=== PATIENT | male | born 1955 | race Two or more races ===

== ENCOUNTER 2018-05-25 09:31 | Inpatient (IN) | END 2018-07-02 21:58 | DRG 374 ==

== ENCOUNTER 2018-07-31 21:37 | Inpatient (IN) | END 2018-08-03 18:00 | disposition home health service (06) | DRG 393 ==

== ENCOUNTER 2018-10-18 12:07 | Inpatient (IN) | payer MEDICARE, OTHER ==
[~2018-10-18] VITALS: Ht 182.9 cm; Wt 56.9 kg
[2018-10-18] MEDS ORDERED: morphine 4 MG/ML VIAL IV STA (12:12)
[2018-10-18] MEDS ORDERED: CEFEPIME 2GM/50 ML (PMX) 50 ML IVPB STA (12:12)
[2018-10-18] MEDS ORDERED: SODIUM CHLORIDE 0.9% 1L BAG IV* STA (12:12)
[2018-10-18] MEDS ORDERED: ONDANSETRON 4 MG INJ IV STA (12:12)
[2018-10-18 12:17] VITALS: Ht 182.9 cm; Wt 56.9 kg
[2018-10-18] MEDS ORDERED: ALBUTEROL 0.5% (NEB) 2.5 MG/0.5 ML AMP INH STA (12:28)
[2018-10-18] MEDS ORDERED: IPRATROPIUM (NEB) 0.5 MG/2.5 ML AMP INH STA (12:28)
[2018-10-18] MEDS ORDERED: VANCOMYCIN 1 GM (PMX) 250 ML IVPB ONE (12:30)
--- NOTE | 2018-10-18 13:06 | ERD ---
ER Documentation Chief Complaint Chief Complaint sob, generalized weakness. 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 He is undergoing radiation therapy. He has chronic dysphagia with a PEG tube. He also has underlying COPD hypertension cirrhosis and baseline tachycardia. The patient was brought into the emergency department today by EMS for generalized weakness. His son phoned 911 and informed EMS that the patient was recently discharged from [facility] on October 13, 2018. The patient denies any chest pain. He has no shortness of breath at rest or exertion. The patient denies headache or dizziness. The patient is also a DO NOT RESUSCITATE with comfort measures only ROS All systems reviewed and are negative except as per history of present illness. Medications Home Meds Reported Medications Acetaminophen* (Tylenol*) 500 Mg Tab, 500 MG PO NEEDED PRN for MILD PAIN LEVEL 1-3, TAB 10/18/18 Discontinued Reported Medications Amlodipine Besylate* (Norvasc*) 5 Mg Tablet, 5 MG PO NEEDED, TAB 07/31/18 Benazepril Hcl* (Benazepril Hcl*) 20 Mg Tablet, 20 MG PO NEEDED, #30 TAB 07/31/18 Acetaminophen* (Acetaminophen*) 325 Mg Tablet, 325 MG PO Q4H PRN for PAIN AND OR ELEVATED TEMP, #30 TAB 05/24/18 Amitriptyline Hcl* (Amitriptyline Hcl*) 25 Mg Tablet, 25 MG PO QHS, #30 TAB 07/31/18 Omeprazole* (Omeprazole*) 40 Mg Capsule.dr, 40 MG PO DAILY, #30 CAP 07/31/18 Polyethylene Glycol 3350 (POLYETHYLENE GLYCOL 3350) 1 Gm Granules, 1 GM MC 07/31/18 Meloxicam* (Mobic*) 15 Mg Tablet, 15 MG PO DAILY, #30 TAB 07/31/18 Lorazepam* (Lorazepam*) 0.5 Mg Tablet, 0.5 MG PO HS PRN for AGITATION/ANXIETY, TAB 05/24/18 Pantoprazole* (Pantoprazole*) 40 Mg Tablet.dr, 40 MG PO DAILY, TAB 05/24/18 Discontinued Scripts [Swallow Study] No Conflict Check VIDEO SWALLOW STUDY INDICATION: Severe Dysphagia DIAGNOSIS: Squamous esophageal cancer of the esophagus Prov:YOUSIF GARCIA 08/03/18 Allergies Allergies: Coded Allergies: No Known Allergy (Unverified , 10/18/18) PMhx/Soc History of Surgery: Yes (gtube) Anesthesia Reaction: No Hx Neurological Disorder: No Hx Respiratory Disorders: Yes Hx Cardiac Disorders: Yes Hx Psychiatric Problems: No Hx Miscellaneous Medical Probl: Yes (esophageal ca) Hx Alcohol Use: Yes Hx Substance Use: No Hx Tobacco Use: Yes Smoking Status: Never smoker Physical Exam Vitals Vital Signs Date Temp Pulse Resp B/P (MAP) Pulse Ox O2 O2 Flow FiO2 Time Delivery Rate 10/18/18 28 158/67 High Flow 14:50 (97) 10/18/18 94 100 13:18 10/18/18 122 28 94 100 13:18 10/18/18 120 30 165/93 High Flow 13:00 (117) 10/18/18 Nasal 3.0 12:20 Cannula 10/18/18 97.0 122 32 177/100 82 Nasal 4.0 12:20 (125) Cannula 10/18/18 Nasal 3 12:20 Cannula 10/18/18 97.0 122 32 177/100 80 12:17 (125) Physical Exam Constitutional: Debilitated cachectic male HEENT:Normocephalic. Atraumatic.Pupils were equal round reactive to light. Moist mucous membranes.No tonsillar exudates. Neck: No nuchal rigidity. No lymphadenopathy. No posterior cervical spine tenderness or step-offs. Respiratory: Auditory wheezing and wheezing heard on end auscultation bilaterally. No stridor. No rhonchi. Cardiovascular: Tachycardic with regular rhythm.No murmurs. No rubs were appreciated.S1, S2 normal. Distal pulses are palpable 2+ bilaterally. GI: Abdomen was soft. Nontender. Non Distended. No pulsatile abdominal masses or bruits. No rebound. No guarding. Bowel sounds were present and normal. PEG tube in place. Muscle skeletal: Muscle atrophy of the upper and lower extremities Skin: No petechia, no purpura. No lesions on the palms or the soles of the feet. No maculopapular rash. NEURO: She was alert and awake. Patient would follow simple verbal command. Patient was moaning incomprehensible sounds. Result Diagram: 10/18/18 1230 10/18/18 1230 Results 24 hrs Laboratory Tests Test 10/18/18 12:30 10/18/18 12:38 White Blood Count 28.0 10^3/ul Red Blood Count 3.04 10^6/ul Hemoglobin 9.3 g/dl Hematocrit 29.9 % Mean Corpuscular Volume 98.4 fl Mean Corpuscular Hemoglobin 30.6 pg Mean Corpuscular Hemoglobin Concent 31.1 g/dl Red Cell Distribution Width 15.4 % Platelet Count 190 10^3/UL Mean Platelet Volume 12.7 fl Immature Granulocytes % 1.100 % Neutrophils % % Segmented Neutrophils % (Manual) 92 % Band Neutrophils % (Manual) 3 % Lymphocytes % % Lymphocytes % (Manual) 3 % Monocytes % % Monocytes % (Manual) 2 % Eosinophils % % Basophils % % Nucleated Red Blood Cells % 0.0 /100WBC Immature Granulocytes # 0.300 10^3/ul Neutrophils # 10^3/ul Neutrophils # (Manual) 26.0 10^3/ul Band Neutrophils # 0.8 10^3/ul Lymphocytes (Manual) 0.8 10^3/ul Lymphocytes # 10^3/ul Monocytes # 10^3/ul Monocytes # (Manual) 0.5 10^3/ul Eosinophils # 10^3/ul Basophils # 10^3/ul Nucleated Red Blood Cells # 10^3/ul Platelet Estimate NORMAL Giant Platelets 1 % Polychromasia 1+ Poikilocytosis 1+ Anisocytosis 1+ Prothrombin Time 18.2 Sec Prothrombin Time Ratio 1.4 INR International Normalized Ratio 1.48 Activated Partial Thromboplast Time 39.9 Sec Urine Color YELLOW Urine Clarity CLOUDY Urine pH 5.0 Urine Specific [place] 1.015 Urine Ketones NEGATIVE mg/dL Urine Nitrite NEGATIVE mg/dL Urine Bilirubin NEGATIVE mg/dL Urine Urobilinogen NEGATIVE mg/dL Urine Leukocyte Esterase NEGATIVE Roxana/ul Urine Microscopic RBC 58 /HPF Urine Microscopic WBC 11 /HPF Urine Bacteria FEW /HPF Urine Mucus FEW /HPF Urine Hemoglobin 2+ mg/dL Urine Glucose NEGATIVE mg/dL Urine Total Protein NEGATIVE mg/dl Sodium Level 153 mmol/L Potassium Level 3.1 mmol/L Chloride Level 119 mmol/L Carbon Dioxide Level 29 mmol/L Anion Gap 5 Blood Urea Nitrogen 31 mg/dl Creatinine 0.66 mg/dl Est Glomerular Filtrat Rate mL/min > 60 mL/min Glucose Level 109 mg/dl Lactic Acid Level 2.2 mmol/L Calcium Level 12.4 mg/dl Total Bilirubin 0.3 mg/dl Direct Bilirubin 0.00 mg/dl Indirect Bilirubin 0.3 mg/dl Aspartate Amino Transf (AST/SGOT) 45 IU/L Alanine Aminotransferase (ALT/SGPT) 23 IU/L Alkaline Phosphatase 141 IU/L Troponin I 0.023 ng/ml Total Protein 7.0 g/dl Albumin 2.6 g/dl Globulin 4.40 g/dl Albumin/Globulin Ratio 0.59 Amylase Level 50 U/L Lipase 42 U/L POC Venous Lactate 2.3 mmol/L Current Medications Medications Dose Sig/Deandra Start Time Status Last (Trade) Ordered Route PRN Stop Time Admin Dose Reason Admin Sodium 2,400 ml BOLUS OVER 2 10/18/18 DC 10/18/18 Chloride HOURS STAT 12: 13:08 (NS) IV* 10/18/18 12:15 Morphine 2 mg ONCE STAT 10/18/18 DC 10/18/18 Sulfate IV 12:12 13:08 (morphine) 10/18/18 12:15 Ondansetron 4 mg ONCE STAT 10/18/18 DC 10/18/18 HCl (Zofran IV 12:12 13:08 Inj) 10/18/18 12:15 Cefepime HCl 50 ml @ ONCE STAT 10/18/18 DC 10/18/18 100 mls/hr IVPB 12:12 13:28 10/18/18 12:41 Vancomycin 250 ml @ ONCE ONCE 10/18/18 DC 10/18/18 HCl 125 mls/hr IVPB 12:30 13:07 10/18/18 14:29 Albuterol 10 mg ONCE STAT 10/18/18 DC 10/18/18 (Proventil INH 12:28 13:20 0.5% (Neb)) 10/18/18 12:30 Ipratropium 1 mg ONCE STAT 10/18/18 DC 10/18/18 Colver INH 12:28 13:21 (Atrovent 10/18/18 0.02% 12:30 (Neb)) Procedures/MDM This is a 63-year-old male that presented to the emergency department with respiratory distress cachexia and physical exam findings with failure to thrive. To treat the patient's respiratory distress he was immediately placed on high flow supplemental oxygen. He was hypoxic on room air at roughly 88%. He improved his pulse oximetry to 96% on the high flow and was also given nebulizer treatments albuterol Atrovent with improvement of the wheezing. 12 Lead EKG tracing ordered and reviewed by myself showed: Sinus tachycardia 118 bpm and no arrhythmia. Immature supraventricular complexes. TN interval normal. QRS duration normal. No ST segment elevation No ST segment depression. No changes consistent with acute ischemia. The patient arrived he did meet Sirs criteria. Patient's infectious symptoms have not stabilized and the patient is at risk of rapid decompensation. The patient will be admitted for careful hydration, antibiotic therapy, and infectious source control. Severe Sepsis Assessment: Infectious Source: Pyleonephritis End organ damage indicated by: Lactate > 2.0 mmol/L Severe Sepsis Managment: Blood Cultures X 2 before broad spectrum antibiotics initiated within 3 hours of recognition. 30 ml/kg NS bolus Completed Initial Lactate: Normal Repeat Lactate not indicated as initial < 2.0 I considered further perfusion assessment with CVP measurement, SCVO2, bedside ultrasound volume assessment, passive leg raise, trial of further fluid bolus. And preceded with IV fluids The patient has significant elevation of his sodium at 156. The patient had a urinary tract infection. 1 view chest radiograph were reviewed by myself and again the followin. Hazy air space opacities in the lower lung navarrete bilaterally. This may reflect an acute inflammatory process. 2. Small the medium right pleural effusion with trace left-sided pleural effusion. Cardiomegaly and aortic atherosclerosis. Family was at bedside and I did indicate grave prognosis as the patient and he was given analgesic medication. The patient will be admitted under the care of Dr. Gusman as requested by Dr. Perez will be consulted on the patient's case. Given that the patient is comfort care measures only the patient will be going to the medical surgical floor. Critical Care: Time: 80 minutes Treatments/Evaluations: Close monitoring and treatment of unstable vital signs, cardiorespiratory, and neurologic status, while maintaining tight balance of fluid, respiratory, and cardiac interventions. Time does not include performing any of the above billable procedures. The patient had been admitted up to the medical surgical floor. I received a call from the charge nurse Sena as she stated the family was requesting the patient to be transferred to the intensive care unit for further monitoring. The order had been put in by Dr. Arabella Plummer. However I was in hospital and therefore the charge nurse asked if I would come and speak with the family. I went up to the bedside. Multiple family members were they are including the patient's daughter. The patient was experiencing severe respiratory distress on high flow oxygen. I indicated to the family that his prognosis was grave. He received analgesic medication. The family understood the seriousness of the patient's condition and therefore after I spoke with them they stated they felt comfortable remaining on the medical surgical floor for comfort measures only and therefore the transfer to the ICU was not performed. The patient will continue to be monitored on the medical surgical floor for comfort care measures only. Departure Diagnosis: Primary Impression: Sepsis Sepsis type: sepsis due to unspecified organism Qualified Codes: A41.9 - Sepsis, unspecified organism Additional Impressions: Pyelonephritis Failure to thrive Failure to thrive age range: in adult Qualified Codes: R62.7 - Adult failure to thrive Esophageal cancer Malignant neoplasm of esophagus location: unspecified location Qualified Codes: C15.9 - Malignant neoplasm of esophagus, unspecified Condition: Serious EDUARDO OMALLEY MD Oct 18, 2018 13:04
[2018-10-18] MEDS ORDERED: TYL500 PO (13:15)
[2018-10-18] MEDS ORDERED: ACETAMINOPHEN 325 MG TAB PO PRN (15:00)
[2018-10-18] MEDS ORDERED: ONDANSETRON 4 MG INJ IV PRN ×2 (15:00→17:00)
[2018-10-18 16:50] VITALS: BP 163/80; PULSE 149; RESP 20
[2018-10-18] MEDS ORDERED: ACETAMINOPHEN 650MG/20.3ML CUP GTB PRN (17:00)
[2018-10-18] MEDS: morphine 2 MG INJ IV PRN ×2 (17:59→22:03)
[2018-10-18] MEDS: DEXTROSE 5%-0.45% NACL 1,000 ML IV SCH (18:03)
[2018-10-18] MEDS: ATENOLOL 25 MG TAB GTB SCH (18:18)
[2018-10-18 18:40] VITALS: BP 102/59; PULSE 145; RESP 26
[2018-10-18 19:16] VITALS: BP 90/55; PULSE 129; RESP 18
[2018-10-18] MEDS: LORAZEPAM 2 MG INJ IV PRN (19:31)
--- NOTE | 2018-10-18 20:23 | HP ---
Date/Time of Note Date/Time of Note DATE: 10/18/18 TIME: 20:01 Assessment/Plan VTE Prophylaxis Pharmacological prophylaxis: other Assessment/Plan Assessment/Plan DNR Sepsis- WBC elevated sec to metastatic cancer - comfort care Cirrhosis Squamous cell carcinoma -Esophageal, with esophageal stent, with metastases to the retroperitoneum which is the location of where he gets radiation treatment currently -Follows up with outpatient oncologist Chronic dysphasia -Secondary to squamous cell esophageal Carcinoma, has PEG tube Hypertension Anemia HPI/ROS Admit Date/Time Admit Date/Time Oct 18, 2018 at 14:54 ROS Subjective hx not possible: pt non-verbal PMH/Family/Social Past Medical History Allergies Allergies: Coded Allergies: No Known Allergy (Unverified , 10/18/18) PMhx/Soc History of Surgery: Yes (gtube) Anesthesia Reaction: No Hx Neurological Disorder: No Hx Respiratory Disorders: Yes Hx Cardiac Disorders: Yes Hx Psychiatric Problems: No Hx Miscellaneous Medical Probl: Yes (esophageal ca) Hx Alcohol Use: Yes Hx Substance Use: No Hx Tobacco Use: Yes Smoking Status: Never smoke Coded Allergies: No Known Allergy (Unverified , 10/18/18) Past Surgical History Past Surgical Hx: no surgical history Family History Significant Family History: no pertinent family hx Social History Smoking Status: Former smoker Exam/Review of Systems Vital Signs Vitals Vital Signs Date Temp Pulse Resp B/P (MAP) Pulse Ox O2 O2 Flow FiO2 Time Delivery Rate 10/18/18 98.4 129 18 90/55 (67) 100 19:16 10/18/18 100 16:38 10/18/18 High Flow 15:36 10/18/18 3.0 12:20 Exam Constitutional: non-verbal Cardiovascular: nl pulses, other (weak pulses) Gastrointestinal: soft, ascites Musculoskeletal: muscle weakness, range of motion Extremities: normal pulses Medications Medications Current Medications Atenolol (Tenormin) 25 mg BID GTB Last administered on 10/18/18at 18:18; Admin Dose 25 MG; Start 10/18/18 at 18:00 Ondansetron HCl (Zofran Inj) 4 mg Q4H PRN IV NAUSEA AND/OR VOMITING; Start at 17:00 Morphine Sulfate (morphine) 2 mg Q2H PRN IV SEVERE PAIN LEVEL 7-10 Last administered on 10/18/18at 17:59; Admin Dose 2 MG; Start 10/18/18 at 17:00 Acetaminophen (Tylenol Liquid) 650 mg Q4H PRN GTB MILD PAIN(1-3)OR ELEVATED TEMP; Start 10/18/18 at 17:00 Dextrose/Sodium Chloride 1,000 ml @ 60 mls/hr [id number] IV Last administered on 10/18/18at 18:03; Admin Dose 60 MLS/HR; Start 10/18/18 at 18:00 Lorazepam (Ativan) 1 mg Q6H PRN IV anxiety/restless Last administered on 10/18/18at 19:31; Admin Dose 1 MG; Start 10/18/18 at 19:00 Results Result Diagram: 10/18/18 1230 10/18/18 1230 Results 24 hrs Laboratory Tests Test 10/18/18 12:30 10/18/18 12:38 White Blood Count 28.0 #H Red Blood Count 3.04 L Hemoglobin 9.3 L Hematocrit 29.9 L Mean Corpuscular Volume 98.4 Mean Corpuscular Hemoglobin 30.6 Mean Corpuscular Hemoglobin Concent 31.1 L Red Cell Distribution Width 15.4 H Platelet Count 190 # Mean Platelet Volume 12.7 H Immature Granulocytes % 1.100 H Neutrophils % Segmented Neutrophils % (Manual) 92 H Band Neutrophils % (Manual) 3 Lymphocytes % Lymphocytes % (Manual) 3 L Monocytes % Monocytes % (Manual) 2 Eosinophils % Basophils % Nucleated Red Blood Cells % 0.0 Immature Granulocytes # 0.300 H Neutrophils # Neutrophils # (Manual) 26.0 H Band Neutrophils # 0.8 H Lymphocytes (Manual) 0.8 Lymphocytes # Monocytes # Monocytes # (Manual) 0.5 Eosinophils # Basophils # Nucleated Red Blood Cells # Platelet Estimate NORMAL Giant Platelets 1 H Polychromasia 1+ Poikilocytosis 1+ Anisocytosis 1+ Prothrombin Time 18.2 H Prothrombin Time Ratio 1.4 INR International Normalized Ratio 1.48 Activated Partial Thromboplast Time 39.9 H Urine Color YELLOW Urine Clarity CLOUDY A Urine pH 5.0 Urine Specific [place] 1.015 Urine Ketones NEGATIVE Urine Nitrite NEGATIVE Urine Bilirubin NEGATIVE Urine Urobilinogen NEGATIVE Urine Leukocyte Esterase NEGATIVE Urine Microscopic RBC 58 H Urine Microscopic WBC 11 H Urine Bacteria FEW A Urine Mucus FEW A Urine Hemoglobin 2+ H Urine Glucose NEGATIVE Urine Total Protein NEGATIVE Sodium Level 153 H Potassium Level 3.1 L Chloride Level 119 H Carbon Dioxide Level 29 Anion Gap 5 Blood Urea Nitrogen 31 H Creatinine 0.66 Est Glomerular Filtrat Rate mL/min > 60 Glucose Level 109 Lactic Acid Level 2.2 *H Calcium Level 12.4 H Total Bilirubin 0.3 Direct Bilirubin 0.00 Indirect Bilirubin 0.3 Aspartate Amino Transf (AST/SGOT) 45 Alanine Aminotransferase (ALT/SGPT) 23 Alkaline Phosphatase 141 H Troponin I 0.023 Total Protein 7.0 Albumin 2.6 L Globulin 4.40 H Albumin/Globulin Ratio 0.59 Amylase Level 50 Lipase 42 POC Venous Lactate 2.3 *H SHANTE WASHINGTON Oct 18, 2018 20:11
[2018-10-19] MEDS: morphine 2 MG INJ IV PRN ×3 (00:09→05:35)
[2018-10-19 00:51] VITALS: BP 60/40; PULSE 87; RESP 16
[2018-10-19] MEDS: CEFEPIME 1GM/50 ML (PMX) 50 ML IVPB SCH ×2 (05:35→18:32)
[2018-10-19] MEDS: LORAZEPAM 2 MG INJ IV PRN (06:32)
[2018-10-19 07:21] VITALS: BP 65/40; PULSE 73; RESP 12
[2018-10-19] MEDS ORDERED: ACETAMINOPHEN 325 MG TAB PO PRN (09:00)
[2018-10-19] MEDS ORDERED: ONDANSETRON 4 MG INJ IV PRN (09:00)
[2018-10-19] MEDS ORDERED: LORAZEPAM 2 MG INJ IV PRN (09:00)
[2018-10-19] MEDS: ATENOLOL 25 MG TAB GTB SCH ×2 (09:00→21:00)
--- NOTE | 2018-10-19 09:22 | PN ---
DATE: 10/18/2018 The patient has metastatic esophageal cancer, who has been declining since recent discharged from [facility]. Code status and intensity of care discussed with the family. They requested the patient be made DNR and be on comfort care only. The patient, therefore, has been started on IV morphine and IV Ativ an on a p.r.n. basis. In view of elevated lactic acid, we will empirically also start IV vancomycin and IV cefepime. The patient did receive a dose of vancomycin in the ER. The patient, in fact, has a white count that is better than the recent white count of 51,000. There is no bandemia. Plan of c are discussed with Dr. Kathy Cruz from ER physician and also Dr. Katie Perez, who is the [facility]'s oncologist. Dictated By: MARYCARMEN MCCOY/MERNA Conf#: [id number] DID#: [id number]
--- NOTE | 2018-10-19 10:08 | CONS ---
Date/Time of Note Date/Time of Note DATE: 10/18/18 TIME: 18:08 vk le Assessment/Plan Assessment/Plan Chief Complaint/Hosp Course 1. Metastatic esophageal cancer. 2. Acute respiratory failure. 3. Dysphagia status post G-tube placement. 4. History of hypertension. The patient currently is hypotensive. 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 He is undergoing radiation therapy. He has chronic dysphagia with a PEG tube. He also has underlying COPD hypertension cirrhosis and baseline tachycardia. The patient was brought into the emergency department today by EMS for generalized weakness. His son phoned 911 and informed EMS that the patient was recently discharged from [facility] on October 13, 2018. The patient denies any chest pain. He has no shortness of breath at rest or exertion. The patient denies headache or dizziness. The patient is also a DO NOT RESUSCITATE with comfort measures only ROS All systems reviewed and are negative except as per history of present illness. Medications Home Meds Reported Medications Acetaminophen* (Tylenol*) 500 Mg Tab, 500 MG PO NEEDED PRN for MILD PAIN LEVEL 1-3, TAB 10/18/18 Discontinued Reported Medications Amlodipine Besylate* (Norvasc*) 5 Mg Tablet, 5 MG PO NEEDED, TAB 07/31/18 Benazepril Hcl* (Benazepril Hcl*) 20 Mg Tablet, 20 MG PO NEEDED, #30 TAB 07/31/18 Acetaminophen* (Acetaminophen*) 325 Mg Tablet, 325 MG PO Q4H PRN for PAIN AND OR ELEVATED TEMP, #30 TAB 05/24/18 Amitriptyline Hcl* (Amitriptyline Hcl*) 25 Mg Tablet, 25 MG PO QHS, #30 TAB 07/31/18 Omeprazole* (Omeprazole*) 40 Mg Capsule.dr, 40 MG PO DAILY, #30 CAP 07/31/18 Polyethylene Glycol 3350 (POLYETHYLENE GLYCOL 3350) 1 Gm Granules, 1 GM MC 07/31/18 Meloxicam* (Mobic*) 15 Mg Tablet, 15 MG PO DAILY, #30 TAB 07/31/18 Lorazepam* (Lorazepam*) 0.5 Mg Tablet, 0.5 MG PO HS PRN for AGITATION/ANXIETY, TAB 05/24/18 Pantoprazole* (Pantoprazole*) 40 Mg Tablet.dr, 40 MG PO DAILY, TAB 05/24/18 Discontinued Scripts [Swallow Study] No Conflict Check VIDEO SWALLOW STUDY INDICATION: Severe Dysphagia DIAGNOSIS: Squamous esophageal cancer of the esophagus Prov:YOUSIF GARCIA 08/03/18 Allergies Allergies: Coded Allergies: No Known Allergy (Unverified , 10/18/18) PMhx/Soc History of Surgery: Yes (gtube) Anesthesia Reaction: No Hx Neurological Disorder: No Hx Respiratory Disorders: Yes Hx Cardiac Disorders: Yes Hx Psychiatric Problems: No Hx Miscellaneous Medical Probl: Yes (esophageal ca) Hx Alcohol Use: Yes Hx Substance Use: No Hx Tobacco Use: Yes Smoking Status: Never smoker Past Surgical History Past Surgical Hx: no surgical history Social History Smoking Status: Former smoker Exam/Review of Systems Vital Signs Vitals Vital Signs Date Temp Pulse Resp B/P (MAP) Pulse Ox O2 O2 Flow FiO2 Time Delivery Rate 10/18/18 28 158/67 High Flow 14:50 (97) 10/18/18 94 100 13:18 10/18/18 122 28 94 100 13:18 10/18/18 120 30 165/93 High Flow 13:00 (117) 10/18/18 Nasal 3.0 12:20 Cannula 10/18/18 97.0 122 32 177/100 82 Nasal 4.0 12:20 (125) Cannula 10/18/18 Nasal 3 12:20 Cannula 10/18/18 97.0 122 32 177/100 80 12:17 (125) Exam Physical Exam Constitutional: Debilitated cachectic male HEENT:Normocephalic. Atraumatic.Pupils were equal round reactive to light. Moist mucous membranes.No tonsillar exudates. Neck: No nuchal rigidity. No lymphadenopathy. No posterior cervical spine tenderness or step-offs. Respiratory: Auditory wheezing and wheezing heard on end auscultation bilaterally. No stridor. No rhonchi. Cardiovascular: Tachycardic with regular rhythm.No murmurs. No rubs were appreciated.S1, S2 normal. Distal pulses are palpable 2+ bilaterally. GI: Abdomen was soft. Nontender. Non Distended. No pulsatile abdominal masses or bruits. No rebound. No guarding. Bowel sounds were present and normal. PEG tube in place. Muscle skeletal: Muscle atrophy of the upper and lower extremities Skin: No petechia, no purpura. No lesions on the palms or the soles of the feet. No maculopapular rash. NEURO: She was alert and awake. Patient would follow simple verbal command. Patient was moaning incomprehensible sounds. Medications Medications Current Medications Atenolol (Tenormin) 25 mg BID GTB Last administered on 10/18/18at 18:18; Admin Dose 25 MG; Start 10/18/18 at 18:00 Morphine Sulfate (morphine) 2 mg Q2H PRN IV SEVERE PAIN LEVEL 7-10 Last administered on 10/19/18at 05:35; Admin Dose 2 MG; Start 10/18/18 at 17:00 Acetaminophen (Tylenol Liquid) 650 mg Q4H PRN GTB MILD PAIN(1-3)OR ELEVATED TEMP; Start 10/18/18 at 17:00 Dextrose/Sodium Chloride 1,000 ml @ 60 mls/hr [id number] IV Last administered on 10/18/18at 18:03; Admin Dose 60 MLS/HR; Start 10/18/18 at 18:00 Lorazepam (Ativan) 1 mg Q6H PRN IV anxiety/restless Last administered on 10/19/18at 06:32; Admin Dose 1 MG; Start 10/18/18 at 19:00 Cefepime HCl 50 ml @ 100 mls/hr Q12H IVPB Last administered on 10/19/18at 05:35; Admin Dose 100 MLS/HR; Start 10/19/18 at 06:00 Morphine Sulfate/ Sodium Chloride 100 ml @ 1 mls/hr TITRATE IV ; Start 10/19/18 at 10:30 Acetaminophen (Tylenol Tab) 650 mg Q4H PRN PO ELEVATED TEMPERATURE; Start 10/19/18 at 09:00 Lorazepam (Ativan) 1 mg Q4H PRN IV AGITATION/ANXIETY; Start 10/19/18 at 09:00 Ondansetron HCl (Zofran Inj) 4 mg Q6H PRN IV NAUSEA AND/OR VOMITING; Start 10/19/18 at 09:00 Scopolamine (Transderm-Scop) 1 patch Q72H TRANSDERM ; Start 10/19/18 at 10:30 Atropine Sulfate (Atropine 1% Oph) 2 drop Q4H PRN SL PRN SECRETIONS; Start 10/19/18 at 10:30 Eye Lubricant (Artificial Tears Oph) 2 drop EACH SHIFT PRN BOTH EYES DRY EYES; Start 10/19/18 at 10:30 Dimethicone (Blistex Lip [place]) 1 applic EACH SHIFT PRN TOP dry lips; Start 10/19/18 at 10:30 Results Result Diagram: 10/18/18 1230 10/18/18 1230 Results 24 hrs Laboratory Tests Test 10/18/18 12:30 10/18/18 12:38 White Blood Count 28.0 #H Red Blood Count 3.04 L Hemoglobin 9.3 L Hematocrit 29.9 L Mean Corpuscular Volume 98.4 Mean Corpuscular Hemoglobin 30.6 Mean Corpuscular Hemoglobin Concent 31.1 L Red Cell Distribution Width 15.4 H Platelet Count 190 # Mean Platelet Volume 12.7 H Immature Granulocytes % 1.100 H Neutrophils % Segmented Neutrophils % (Manual) 92 H Band Neutrophils % (Manual) 3 Lymphocytes % Lymphocytes % (Manual) 3 L Monocytes % Monocytes % (Manual) 2 Eosinophils % Basophils % Nucleated Red Blood Cells % 0.0 Immature Granulocytes # 0.300 H Neutrophils # Neutrophils # (Manual) 26.0 H Band Neutrophils # 0.8 H Lymphocytes (Manual) 0.8 Lymphocytes # Monocytes # Monocytes # (Manual) 0.5 Eosinophils # Basophils # Nucleated Red Blood Cells # Platelet Estimate NORMAL Giant Platelets 1 H Polychromasia 1+ Poikilocytosis 1+ Anisocytosis 1+ Prothrombin Time 18.2 H Prothrombin Time Ratio 1.4 INR International Normalized Ratio 1.48 Activated Partial Thromboplast Time 39.9 H Urine Color YELLOW Urine Clarity CLOUDY A Urine pH 5.0 Urine Specific [place] 1.015 Urine Ketones NEGATIVE Urine Nitrite NEGATIVE Urine Bilirubin NEGATIVE Urine Urobilinogen NEGATIVE Urine Leukocyte Esterase NEGATIVE Urine Microscopic RBC 58 H Urine Microscopic WBC 11 H Urine Bacteria FEW A Urine Mucus FEW A Urine Hemoglobin 2+ H Urine Glucose NEGATIVE Urine Total Protein NEGATIVE Sodium Level 153 H Potassium Level 3.1 L Chloride Level 119 H Carbon Dioxide Level 29 Anion Gap 5 Blood Urea Nitrogen 31 H Creatinine 0.66 Est Glomerular Filtrat Rate mL/min > 60 Glucose Level 109 Lactic Acid Level 2.2 *H Calcium Level 12.4 H Total Bilirubin 0.3 Direct Bilirubin 0.00 Indirect Bilirubin 0.3 Aspartate Amino Transf (AST/SGOT) 45 Alanine Aminotransferase (ALT/SGPT) 23 Alkaline Phosphatase 141 H Troponin I 0.023 Total Protein 7.0 Albumin 2.6 L Globulin 4.40 H Albumin/Globulin Ratio 0.59 Amylase Level 50 Lipase 42 POC Venous Lactate 2.3 *H MARCELLO HIGH MD Oct 19, 2018 10:08
--- NOTE | 2018-10-19 10:09 | CONS ---
Date/Time of Note Date/Time of Note DATE: 10/19/18 TIME: 10:08 Assessment/Plan Assessment/Plan Chief Complaint/Hosp Course IMPRESSION: 1. Metastatic esophageal cancer. 2. Acute respiratory failure. 3. Dysphagia status post G-tube placement. 4. History of hypertension. The patient currently is hypotensive. PLAN: I spoke with the patient's daughter, and recommended to put him on comfort care since the patient is declining and there is no hope for recovery. They agreed with that and therefore, the patient will be started on morphine drip at 1 mg an hour which will be titrated for comfort care. The patient will be also started on IV Ativan 1 mg q.4 p.r.n. We will continue all other supportive and comfort measures including scopolamine patch for secretion along with atropine drops on p.r.n. basis. We will stop the antibiotic. We will continue to optimize comfort care. Plan of care was discussed with the patient's nurse Consultation Date/Type/Reason Admit Date/Time Oct 18, 2018 at 14:54 Initial Consult Date Requesting Provider: MARYCARMEN KO MD 24 HR Interval Summary Free Text/Dictation Follow up on metastatic esophageal cancer, acute respiratory failure, recent pericardial effusion. The patient continued to decline since yesterday. Blood pressure has dropped into 60s. The patient is lethargic and nonverbal. No reported vomiting. No reported seizure. No reported temperature spike. No reported chills. The patient did receive Ativan 1 mg earlier this morning as well as a dose of morphine for shortness of breath and anxiety. Exam/Review of Systems Vital Signs Vitals Vital Signs Date Temp Pulse Resp B/P (MAP) Pulse Ox O2 O2 Flow FiO2 Time Delivery Rate 10/19/18 97.6 73 12 65/40 (48) 94 07:21 10/19/18 60 05:06 10/18/18 Nasal 18:40 Cannula 10/18/18 3.0 12:20 Intake and Output 10/18/18 10/18/18 10/19/18 1515:00 23:00 07:00 IntakeIntake Total 50 ml 750 ml OutputOutput Total 500 ml BalanceBalance 50 ml 250 ml Exam PHYSICAL EXAMINATION GENERAL: The patient is lethargic and noncommunicative. HEENT: No eye discharge or redness. Nose is normal. NECK: No mass. CHEST: Diminished air entry bilaterally at bases, few coarse breath sounds. CARDIOVASCULAR: S1, S2 normal. Regular rate and rhythm. ABDOMEN: Soft, nondistended. EXTREMITIES: No edema. NEUROLOGIC: The patient is lethargic and no useful communication possible. Medications Medications Current Medications Atenolol (Tenormin) 25 mg BID GTB Last administered on 10/18/18at 18:18; Admin Dose 25 MG; Start 10/18/18 at 18:00 Morphine Sulfate (morphine) 2 mg Q2H PRN IV SEVERE PAIN LEVEL 7-10 Last administered on 10/19/18at 05:35; Admin Dose 2 MG; Start 10/18/18 at 17:00 Acetaminophen (Tylenol Liquid) 650 mg Q4H PRN GTB MILD PAIN(1-3)OR ELEVATED TEMP; Start 10/18/18 at 17:00 Dextrose/Sodium Chloride 1,000 ml @ 60 mls/hr [id number] IV Last administered on 10/18/18at 18:03; Admin Dose 60 MLS/HR; Start 10/18/18 at 18:00 Lorazepam (Ativan) 1 mg Q6H PRN IV anxiety/restless Last administered on 10/19/18at 06:32; Admin Dose 1 MG; Start 10/18/18 at 19:00 Cefepime HCl 50 ml @ 100 mls/hr Q12H IVPB Last administered on 10/19/18at 05:35; Admin Dose 100 MLS/HR; Start 10/19/18 at 06:00 Morphine Sulfate/ Sodium Chloride 100 ml @ 1 mls/hr TITRATE IV ; Start 10/19/18 at 10:30 Acetaminophen (Tylenol Tab) 650 mg Q4H PRN PO ELEVATED TEMPERATURE; Start 10/19/18 at 09:00 Lorazepam (Ativan) 1 mg Q4H PRN IV AGITATION/ANXIETY; Start 10/19/18 at 09:00 Ondansetron HCl (Zofran Inj) 4 mg Q6H PRN IV NAUSEA AND/OR VOMITING; Start 10/19/18 at 09:00 Scopolamine (Transderm-Scop) 1 patch Q72H TRANSDERM ; Start 10/19/18 at 10:30 Atropine Sulfate (Atropine 1% Oph) 2 drop Q4H PRN SL PRN SECRETIONS; Start 12/14/18 at 10:30 Eye Lubricant (Artificial Tears Oph) 2 drop EACH SHIFT PRN BOTH EYES DRY EYES; Start 10/19/18 at 10:30 Dimethicone (Blistex Lip [place]) 1 applic EACH SHIFT PRN TOP dry lips; Start 10/19/18 at 10:30 Results Result Diagram: 10/18/18 1230 10/18/18 1230 Results 24 hrs Laboratory Tests Test 10/18/18 12:30 10/18/18 12:38 White Blood Count 28.0 #H Red Blood Count 3.04 L Hemoglobin 9.3 L Hematocrit 29.9 L Mean Corpuscular Volume 98.4 Mean Corpuscular Hemoglobin 30.6 Mean Corpuscular Hemoglobin Concent 31.1 L Red Cell Distribution Width 15.4 H Platelet Count 190 # Mean Platelet Volume 12.7 H Immature Granulocytes % 1.100 H Neutrophils % Segmented Neutrophils % (Manual) 92 H Band Neutrophils % (Manual) 3 Lymphocytes % Lymphocytes % (Manual) 3 L Monocytes % Monocytes % (Manual) 2 Eosinophils % Basophils % Nucleated Red Blood Cells % 0.0 Immature Granulocytes # 0.300 H Neutrophils # Neutrophils # (Manual) 26.0 H Band Neutrophils # 0.8 H Lymphocytes (Manual) 0.8 Lymphocytes # Monocytes # Monocytes # (Manual) 0.5 Eosinophils # Basophils # Nucleated Red Blood Cells # Platelet Estimate NORMAL Giant Platelets 1 H Polychromasia 1+ Poikilocytosis 1+ Anisocytosis 1+ Prothrombin Time 18.2 H Prothrombin Time Ratio 1.4 INR International Normalized Ratio 1.48 Activated Partial Thromboplast Time 39.9 H Urine Color YELLOW Urine Clarity CLOUDY A Urine pH 5.0 Urine Specific [place] 1.015 Urine Ketones NEGATIVE Urine Nitrite NEGATIVE Urine Bilirubin NEGATIVE Urine Urobilinogen NEGATIVE Urine Leukocyte Esterase NEGATIVE Urine Microscopic RBC 58 H Urine Microscopic WBC 11 H Urine Bacteria FEW A Urine Mucus FEW A Urine Hemoglobin 2+ H Urine Glucose NEGATIVE Urine Total Protein NEGATIVE Sodium Level 153 H Potassium Level 3.1 L Chloride Level 119 H Carbon Dioxide Level 29 Anion Gap 5 Blood Urea Nitrogen 31 H Creatinine 0.66 Est Glomerular Filtrat Rate mL/min > 60 Glucose Level 109 Lactic Acid Level 2.2 *H Calcium Level 12.4 H Total Bilirubin 0.3 Direct Bilirubin 0.00 Indirect Bilirubin 0.3 Aspartate Amino Transf (AST/SGOT) 45 Alanine Aminotransferase (ALT/SGPT) 23 Alkaline Phosphatase 141 H Troponin I 0.023 Total Protein 7.0 Albumin 2.6 L Globulin 4.40 H Albumin/Globulin Ratio 0.59 Amylase Level 50 Lipase 42 POC Venous Lactate 2.3 *H MARCELLO HIGH MD Oct 19, 2018 10:08
[2018-10-19] MEDS: morphine (DRIP) 100 MG/100 ML 100 ML IV SCH (10:20)
[2018-10-19] MEDS: SCOPOLAMINE 1.5 MG PATCH TRANSDERM SCH (10:22)
[2018-10-19] MEDS: DIMETHICONE STICK TOP PRN (10:23)
[2018-10-19] MEDS: ARTIFICIAL TEARS 15 ML OPH BOTH EYES PRN (10:23)
[2018-10-19] MEDS: DEXTROSE 5%-0.45% NACL 1,000 ML IV SCH (12:43)
[2018-10-19 14:42] VITALS: BP_SYST 149; BP_SYST 85; BP_DIAS 45; BP_DIAS 71; PULSE 71; RESP 12; RESP 17
--- NOTE | 2018-10-19 15:10 | PN ---
DATE: 10/19/2018 SUBJECTIVE AND INTERVAL HISTORY: Follow up on metastatic esophageal cancer, acute respiratory failur e, recent pericardial effusion. The patient continued to decline since yesterday. Blood pressure vincent s dropped into 60s. The patient is lethargic and nonverbal. No reported vomiting. No reported seiz ure. No reported temperature spike. No reported chills. The patient did receive Ativan 1 mg earlie r this morning as well as a dose of morphine for shortness of breath and anxiety. PHYSICAL EXAMINATION GENERAL: The patient is lethargic and noncommunicative. VITAL SIGNS: Temperature 97.6, pulse 70, respiration 12, blood pressure 65/40, O2 saturation 94% on FiO2 of 60%. HEENT: No eye discharge or redness. Nose is normal. NECK: No mass. CHEST: Diminished air entry bilaterally at bases, few coarse breath sounds. CARDIOVASCULAR: S1, S2 normal. Regular rate and rhythm. ABDOMEN: Soft, nondistended. EXTREMITIES: No edema. NEUROLOGIC: The patient is lethargic and no useful communication possible. IMPRESSION: 1. Metastatic esophageal cancer. 2. Acute respiratory failure. 3. Dysphagia status post G-tube placement. 4. History of hypertension. The patient currently is hypotensive. PLAN: I spoke with the patient's daughter ____ and recommended to put him on comfort care since the patient is declining and there is no hope for recovery. They agreed with that and therefore, the pat ient will be started on morphine drip at 1 mg an hour which will be titrated for comfort care. The p atient will be also started on IV Ativan 1 mg q.4 p.r.n. We will continue all other supportive and c omfort measures including scopolamine patch for secretion along with atropine drops on p.r.n. basis. We will stop the antibiotic. We will continue to optimize comfort care. Plan of care was discussed with the patient's nurse, ____. Dictated By: MARYCARMEN MCCOY/MERNA Conf#: [id number] DID#: [id number] CC: MARCELLO HIGH MD;*EndCC*
[2018-10-19 19:30] VITALS: BP 79/48; PULSE 69; RESP 14
[2018-10-20 02:00] VITALS: BP 83/51; PULSE 71; RESP 16
[2018-10-20] MEDS: DEXTROSE 5%-0.45% NACL 1,000 ML IV SCH ×3 (03:20→21:08)
[2018-10-20] MEDS: CEFEPIME 1GM/50 ML (PMX) 50 ML IVPB SCH ×2 (05:32→18:20)
[2018-10-20 07:18] VITALS: BP 90/55; PULSE 94; RESP 20
[2018-10-20] MEDS: ATENOLOL 25 MG TAB GTB SCH ×2 (08:16→21:00)
--- NOTE | 2018-10-20 12:46 | PN ---
Date/Time of Note Date/Time of Note DATE: 10/20/18 TIME: 12:45 Assessment/Plan VTE Prophylaxis Risk score (from Ns)>0 risk: 4 SCD applied (from [facility] [place]): No SCD contraindicated: other Pharmacological prophylaxis: LMWH Lines/Catheters IV Catheter Type (from [facility]): Peripheral IV Urinary Cath still in place: Yes Reason Cath still needed: skin wounds contaminated by urine Assessment/Plan Hospital Course 1. Metastatic esophageal cancer. 2. Acute respiratory failure. 3. Dysphagia status post G-tube placement. 4. History of hypertension. The patient currently is hypotensive. Subjective 24 Hr Interval Summary Free Text/Dictation Patient on comfort care per discussion with family Exam/Review of Systems Vital Signs Vitals Vital Signs Date Temp Pulse Resp B/P (MAP) Pulse Ox O2 O2 Flow FiO2 Time Delivery Rate 10/20/18 93 60 08:12 10/20/18 98.2 94 20 90/55 (67) Nasal 07:18 Cannula 10/18/18 3.0 12:20 Intake and Output 10/19/18 10/19/18 10/20/18 1515:00 23:00 07:00 IntakeIntake Total 300 ml 300 ml 822 ml OutputOutput Total 300 ml 200 ml 150 ml BalanceBalance 0 ml 100 ml 672 ml Exam Constitutional: well developed Head: normocephalic, atraumatic Neck: supple Respiratory: diminished breath sounds Cardiovascular: regular rate and rhythm Gastrointestinal: soft, non-tender Extremities: normal pulses Medications Medications Current Medications Atenolol (Tenormin) 25 mg BID GTB Last administered on 10/18/18at 18:18; Admin Dose 25 MG; Start 10/18/18 at 18:00 Morphine Sulfate (morphine) 2 mg Q2H PRN IV SEVERE PAIN LEVEL 7-10 Last administered on 10/19/18at 05:35; Admin Dose 2 MG; Start 10/18/18 at 17:00 Acetaminophen (Tylenol Liquid) 650 mg Q4H PRN GTB MILD PAIN(1-3)OR ELEVATED TEMP; Start 10/18/18 at 17:00 Dextrose/Sodium Chloride 1,000 ml @ 60 mls/hr [id number] IV Last administered on 10/20/18at 05:32; Admin Dose 60 MLS/HR; Start 10/18/18 at 18:00 Lorazepam (Ativan) 1 mg Q6H PRN IV anxiety/restless Last administered on 10/19/18at 06:32; Admin Dose 1 MG; Start 10/18/18 at 19:00 Cefepime HCl 50 ml @ 100 mls/hr Q12H IVPB Last administered on 10/20/18at 05:32; Admin Dose 100 MLS/HR; Start 10/19/18 at 06:00 Morphine Sulfate/ Sodium Chloride 100 ml @ 1 mls/hr TITRATE IV Last administered on 10/19/18at 10:20; Admin Dose 1 MLS/HR; Start 10/19/18 at 10:30 Acetaminophen (Tylenol Tab) 650 mg Q4H PRN PO ELEVATED TEMPERATURE; Start 10/19/18 at 09:00 Lorazepam (Ativan) 1 mg Q4H PRN IV AGITATION/ANXIETY; Start 10/19/18 at 09:00 Ondansetron HCl (Zofran Inj) 4 mg Q6H PRN IV NAUSEA AND/OR VOMITING; Start 10/19/18 at 09:00 Scopolamine (Transderm-Scop) 1 patch Q72H TRANSDERM Last administered on 10/19/18at 10:22; Admin Dose 1 PATCH; Start 10/19/18 at 10:30 Atropine Sulfate (Atropine 1% Oph) 2 drop Q4H PRN SL PRN SECRETIONS; Start 10/19/18 at 10:30 Eye Lubricant (Artificial Tears [place]) 2 drop EACH SHIFT PRN BOTH EYES DRY EYES Last administered on 10/19/18at 10:23; Admin Dose 2 DROP; Start 10/19/18 at 10:30 Dimethicone (Blistex Lip [place]) 1 applic EACH SHIFT PRN TOP dry lips Last administered on 10/19/18at 10:23; Admin Dose 1 APPLIC; Start 10/19/18 at 10:30 Results Result Diagram: 10/18/18 1230 10/18/18 123 SARAH ARMENTA Oct 20, 2018 12:46
[2018-10-20 13:50] VITALS: BP 71/41; PULSE 86; RESP 16
[2018-10-20 19:34] VITALS: BP 60/35; PULSE 75; RESP 16
--- NOTE | 2018-10-20 23:02 | CONS ---
Date/Time of Note Date/Time of Note DATE: 10/20/18 TIME: 23:00 Assessment/Plan Assessment/Plan Chief Complaint/Hosp Course IMPRESSION: 1. Metastatic esophageal cancer. 2. Acute respiratory failure. 3. Dysphagia status post G-tube placement. 4. History of hypertension. The patient currently is hypotensive. Patient on comfort care cont current care Consultation Date/Type/Reason Admit Date/Time Oct 18, 2018 at 14:54 Initial Consult Date Requesting Provider: MARYCARMEN KO MD 24 HR Interval Summary Free Text/Dictation Patient on comfort care Exam/Review of Systems Vital Signs Vitals Vital Signs Date Temp Pulse Resp B/P (MAP) Pulse Ox O2 O2 Flow FiO2 Time Delivery Rate 10/20/18 95 60 21:09 10/20/18 97.6 75 16 60/35 (43) 19:34 10/20/18 Nasal 13:50 Cannula 10/18/18 3.0 12:20 Intake and Output 10/19/18 10/19/18 10/20/18 1515:00 23:00 07:00 IntakeIntake Total 300 ml 300 ml 822 ml OutputOutput Total 300 ml 200 ml 150 ml BalanceBalance 0 ml 100 ml 672 ml Exam GENERAL: The patient is lethargic and noncommunicative. HEENT: No eye discharge or redness. Nose is normal. NECK: No mass. CHEST: Diminished air entry bilaterally at bases, few coarse breath sounds. CARDIOVASCULAR: S1, S2 normal. Regular rate and rhythm. ABDOMEN: Soft, nondistended. EXTREMITIES: No edema. NEUROLOGIC: The patient is lethargic and no useful communication possible. Medications Medications Current Medications Atenolol (Tenormin) 25 mg BID GTB Last administered on 10/18/18at 18:18; Admin Dose 25 MG; Start 10/18/18 at 18:00 Morphine Sulfate (morphine) 2 mg Q2H PRN IV SEVERE PAIN LEVEL 7-10 Last administered on 10/19/18at 05:35; Admin Dose 2 MG; Start 10/18/18 at 17:00 Acetaminophen (Tylenol Liquid) 650 mg Q4H PRN GTB MILD PAIN(1-3)OR ELEVATED TEMP; Start 10/18/18 at 17:00 Dextrose/Sodium Chloride 1,000 ml @ 60 mls/hr [id number] IV Last administered on 10/20/18 21:08; Admin Dose 60 MLS/HR; Start 10/18/18 at 18:00 Lorazepam (Ativan) 1 mg Q6H PRN IV anxiety/restless Last administered on 10/19/18 06:32; Admin Dose 1 MG; Start 10/18/18 at 19:00 Cefepime HCl 50 ml @ 100 mls/hr Q12H IVPB Last administered on 10/20/18at 18:20; Admin Dose 100 MLS/HR; Start 10/19/18 at 06:00 Morphine Sulfate/ Sodium Chloride 100 ml @ 1 mls/hr TITRATE IV Last administered on 10/19/18 10:20; Admin Dose 1 MLS/HR; Start 10/19/18 at 10:30 Acetaminophen (Tylenol Tab) 650 mg Q4H PRN PO ELEVATED TEMPERATURE; Start 10/19/18 at 09:00 Lorazepam (Ativan) 1 mg Q4H PRN IV AGITATION/ANXIETY; Start 10/19/18 at 09:00 Ondansetron HCl (Zofran Inj) 4 mg Q6H PRN IV NAUSEA AND/OR VOMITING; Start 10/19/18 at 09:00 Scopolamine (Transderm-Scop) 1 patch Q72H TRANSDERM Last administered on 10/19/18at 10:22; Admin Dose 1 PATCH; Start 10/19/18 at 10:30 Atropine Sulfate (Atropine 1% Oph) 2 drop Q4H PRN SL PRN SECRETIONS; Start 10/19/18 at 10:30 Eye Lubricant (Artificial Tears [place]) 2 drop EACH SHIFT PRN BOTH EYES DRY EYES Last administered on 10/19/18at 10:23; Admin Dose 2 DROP; Start 10/19/18 at 10:30 Dimethicone (Blistex Lip [place]) 1 applic EACH SHIFT PRN TOP dry lips Last administered on 10/19/18at 10:23; Admin Dose 1 APPLIC; Start 10/19/18 at 10:30 Results Result Diagram: 10/18/18 1230 10/18/18 1230 MARCELLO HIGH MD Oct 20, 2018 23:02
[2018-10-21] MEDS: morphine (DRIP) 100 MG/100 ML 100 ML IV SCH (05:37)
[2018-10-21] MEDS: CEFEPIME 1GM/50 ML (PMX) 50 ML IVPB SCH ×2 (05:45→17:10)
[2018-10-21 07:36] VITALS: BP 65/38; PULSE 87; RESP 14
[2018-10-21] MEDS: ATENOLOL 25 MG TAB GTB SCH ×2 (07:45→21:00)
[2018-10-21] MEDS: ARTIFICIAL TEARS 15 ML OPH BOTH EYES PRN ×2 (11:01→21:32)
[2018-10-21] MEDS: DIMETHICONE STICK TOP PRN (11:01)
--- NOTE | 2018-10-21 12:39 | PN ---
Date/Time of Note Date/Time of Note DATE: 10/21/18 TIME: 12:38 Assessment/Plan VTE Prophylaxis Risk score (from Ns)>0 risk: 3 SCD applied (from [facility] [place] No SCD contraindicated: other Pharmacological prophylaxis: LMWH Lines/Catheters IV Catheter Type (from [facility]): PICC Line Central line still needed: Yes Urinary Cath still in place: Yes Reason Cath still needed: skin wounds contaminated by urine Assessment/Plan Hospital Course 1. Metastatic esophageal cancer. 2. Acute respiratory failure. 3. Dysphagia status post G-tube placement. 4. History of hypertension. The patient currently is hypotensive. Subjective 24 Hr Interval Summary Free Text/Dictation Patient on comfort care, no evidence of agitation Exam/Review of Systems Vital Signs Vitals Vital Signs Date Temp Pulse Resp B/P (MAP) Pulse Ox O2 O2 Flow FiO2 Time Delivery Rate 10/21/18 Nasal 10:00 Cannula 10/21/18 98.7 87 14 65/38 (47) 90 07:36 10/21/18 60 05:24 10/18/18 3.0 12:20 Intake and Output 10/20/18 10/20/18 10/21/18 1515:00 23:00 07:00 IntakeIntake Total 1074 ml 1125.29 ml OutputOutput Total 100 ml BalanceBalance 1074 ml 1025.29 ml Exam Constitutional: well developed Head: normocephalic, atraumatic Neck: supple Respiratory: diminished breath sounds Cardiovascular: regular rate and rhythm Gastrointestinal: soft, non-tender Extremities: normal pulses Medications Medications Current Medications Atenolol (Tenormin) 25 mg BID GTB Last administered on 10/18/18at 18:18; Admin Dose 25 MG; Start 10/18/18 at 18:00 Morphine Sulfate (morphine) 2 mg Q2H PRN IV SEVERE PAIN LEVEL 7-10 Last administered on 10/19/18at 05:35; Admin Dose 2 MG; Start 10/18/18 at 17:00 Acetaminophen (Tylenol Liquid) 650 mg Q4H PRN GTB MILD PAIN(1-3)OR ELEVATED T EMP; Start 10/18/18 at 17:00 Dextrose/Sodium Chloride 1,000 ml @ 60 mls/hr [id number] IV Last administered on 10/20/18at 21:08; Admin Dose 60 MLS/HR; Start 10/18/18 at 18:00 Lorazepam (Ativan) 1 mg Q6H PRN IV anxiety/restless Last administered on 10/19/18at 06:32; Admin Dose 1 MG; Start 10/18/18 at 19:00 Cefepime HCl 50 ml @ 100 mls/hr Q12H IVPB Last administered on 10/21/18at 05:45; Admin Dose 100 MLS/HR; Start 10/19/18 at 06:00 Morphine Sulfate/ Sodium Chloride 100 ml @ 1 mls/hr TITRATE IV Last administered on 10/21/18at 05:37; Admin Dose 2 MLS/HR; Start 10/19/18 at 10:30 Acetaminophen (Tylenol Tab) 650 mg Q4H PRN PO ELEVATED TEMPERATURE; Start 10/19/18 at 09:00 Lorazepam (Ativan) 1 mg Q4H PRN IV AGITATION/ANXIETY; Start 10/19/18 at 09:00 Ondansetron HCl (Zofran Inj) 4 mg Q6H PRN IV NAUSEA AND/OR VOMITING; Start 10/19/18 at 09:00 Scopolamine (Transderm-Scop) 1 patch Q72H TRANSDERM Last administered on 10/19/18at 10:22; Admin Dose 1 PATCH; Start 10/19/18 at 10:30 Atropine Sulfate (Atropine 1% Oph) 2 drop Q4H PRN SL PRN SECRETIONS; Start 10/19/18 at 10:30 Eye Lubricant (Artificial Tears Oph) 2 drop EACH SHIFT PRN BOTH EYES DRY EYES Last administered on 10/21/18at 11:01; Admin Dose 2 DROP; Start 10/19/18 at 10:30 Dimethicone (Blistex Lip [place]) 1 applic EACH SHIFT PRN TOP dry lips Last administered on 10/21/18at 11:01; Admin Dose 1 APPLIC; Start 10/19/18 at 10:30 Results Result Diagram: 10/18/18 1230 10/18/18 1230 SARAH ARMENTA Oct 21, 2018 12:39
[2018-10-21] MEDS: DEXTROSE 5%-0.45% NACL 1,000 ML IV SCH ×2 (12:40→14:33)
[2018-10-21 14:36] VITALS: BP 63/38; PULSE 77; RESP 14
--- NOTE | 2018-10-21 18:39 | CONS ---
Date/Time of Note Date/Time of Note DATE: 10/21/18 TIME: 18:39 Assessment/Plan Assessment/Plan Chief Complaint/Hosp Course IMPRESSION: 1. Metastatic esophageal cancer. 2. Acute respiratory failure. 3. Dysphagia status post G-tube placement. 4. History of hypertension. The patient currently is hypotensive. Patient on comfort care cont current care Consultation Date/Type/Reason Admit Date/Time Oct 18, 2018 at 14:54 Initial Consult Date Requesting Provider: MARYCARMEN KO MD 24 HR Interval Summary Free Text/Dictation all noted all noted Exam/Review of Systems Vital Signs Vitals Vital Signs Date Temp Pulse Resp B/P (MAP) Pulse Ox O2 O2 Flow FiO2 Time Delivery Rate 10/21/18 Nasal 18:00 Cannula 10/21/18 95 60 15:23 10/21/18 99.0 77 14 63/38 (46) 14:36 10/18/18 3.0 12:20 Intake and Output 10/20/18 10/20/18 10/21/18 1515:00 23:00 07:00 IntakeIntake Total 1074 ml 1125.29 ml OutputOutput Total 100 ml BalanceBalance 1074 ml 1025.29 ml Exam GENERAL: The patient is lethargic and noncommunicative. HEENT: No eye discharge or redness. Nose is normal. NECK: No mass. CHEST: Diminished air entry bilaterally at bases, few coarse breath sounds. CARDIOVASCULAR: S1, S2 normal. Regular rate and rhythm. ABDOMEN: Soft, nondistended. EXTREMITIES: No edema. NEUROLOGIC: The patient is lethargic and no useful communication possible. Medications Medications Current Medications Atenolol (Tenormin) 25 mg BID GTB Last administered on 10/18/18at 18:18; Admin Dose 25 MG; Start 10/18/18 at 18:00 Morphine Sulfate (morphine) 2 mg Q2H PRN IV SEVERE PAIN LEVEL 7-10 Last administered on 10/19/18at 05:35; Admin Dose 2 MG; Start 10/18/18 at 17:00 Acetaminophen (Tylenol Liquid) 650 mg Q4H PRN GTB MILD PAIN(1-3)OR ELEVATED TEMP; Start 10/18/18 at 17:00 Dextrose/Sodium Chloride 1,000 ml @ 60 mls/hr [id number] IV Last administered on 10/21/18at 14:33; Admin Dose 60 MLS/HR; Start 10/18/18 at 18:00 Lorazepam (Ativan) 1 mg Q6H PRN IV anxiety/restless Last administered on 10/19/18at 06:32; Admin Dose 1 MG; Start 10/18/18 at 19:00 Cefepime HCl 50 ml @ 100 mls/hr Q12H IVPB Last administered on 10/21/18at 17:10; Admin Dose 100 MLS/HR; Start 10/19/18 at 06:00 Morphine Sulfate/ Sodium Chloride 100 ml @ 1 mls/hr TITRATE IV Last admini stered on 10/21/18at 05:37; Admin Dose 2 MLS/HR; Start 10/19/18 at 10:30 Acetaminophen (Tylenol Tab) 650 mg Q4H PRN PO ELEVATED TEMPERATURE; Start 10/19/18 at 09:00 Lorazepam (Ativan) 1 mg Q4H PRN IV AGITATION/ANXIETY; Start 10/19/18 at 09:00 Ondansetron HCl (Zofran Inj) 4 mg Q6H PRN IV NAUSEA AND/OR VOMITING; Start 10/19/18 at 09:00 Scopolamine (Transderm-Scop) 1 patch Q72H TRANSDERM Last administered on 10/19/18at 10:22; Admin Dose 1 PATCH; Start 10/19/18 at 10:30 Atropine Sulfate (Atropine 1% Oph) 2 drop Q4H PRN SL PRN SECRETIONS; Start 10/19/18 at 10:30 Eye Lubricant (Artificial Tears Oph) 2 drop EACH SHIFT PRN BOTH EYES DRY EYES Last administered on 10/21/18at 11:01; Admin Dose 2 DROP; Start 10/19/18 at 10:30 Dimethicone (Blistex Lip [place]) 1 applic EACH SHIFT PRN TOP dry lips Last administered on 10/21/18at 11:01; Admin Dose 1 APPLIC; Start 10/19/18 at 10:30 Results Result Diagram: 10/18/18 1230 10/18/18 1230 MARCELLO HIGH MD Oct 21, 2018 18:39
[2018-10-21 19:20] VITALS: BP 64/38; PULSE 75; RESP 15
[2018-10-22 02:00] VITALS: BP 63/37; PULSE 78; RESP 14
[2018-10-22] MEDS: DEXTROSE 5%-0.45% NACL 1,000 ML IV SCH ×2 (05:20→09:25)
[2018-10-22 07:19] VITALS: BP 69/39; PULSE 88; RESP 12
[2018-10-22] MEDS: ATENOLOL 25 MG TAB GTB SCH ×2 (09:00→20:58)
[2018-10-22] MEDS: SCOPOLAMINE 1.5 MG PATCH TRANSDERM SCH (09:26)
[2018-10-22] MEDS: ARTIFICIAL TEARS 15 ML OPH BOTH EYES PRN ×2 (09:27→21:00)
[2018-10-22] MEDS: DIMETHICONE STICK TOP PRN ×2 (09:27→21:00)
[2018-10-22 13:57] VITALS: BP 59/36; PULSE 74; RESP 10
[2018-10-22 20:00] VITALS: BP 56/35; PULSE 81; RESP 14
--- NOTE | 2018-10-22 22:59 | CONS ---
Date/Time of Note Date/Time of Note DATE: 10/22/18 TIME: 22:59 Assessment/Plan Assessment/Plan Chief Complaint/Hosp Course IMPRESSION: 1. Metastatic esophageal cancer. 2. Acute respiratory failure. 3. Dysphagia status post G-tube placement. 4. History of hypertension. The patient currently is hypotensive. Patient on comfort care cont current care Consultation Date/Type/Reason Admit Date/Time Oct 18, 2018 at 14:54 Initial Consult Date Requesting Provider: MARYCARMNE KO MD 24 HR Interval Summary Free Text/Dictation all noted NAD Exam/Review of Systems Vital Signs Vitals Vital Signs Date Temp Pulse Resp B/P (MAP) Pulse Ox O2 O2 Flow FiO2 Time Delivery Rate 10/22/18 97.4 74 10 59/36 (44) 84 Nasal 13:57 Cannula 10/22/18 5.0 08:00 10/21/18 60 20:00 Intake and Output 10/21/18 10/21/18 10/22/18 1414:59 22:59 06:59 IntakeIntake Total 1016.7 ml 216 ml 676 ml BalanceBalance 1016.7 ml 216 ml 676 ml Exam GENERAL: The patient is lethargic and noncommunicative. HEENT: No eye discharge or redness. Nose is normal. NECK: No mass. CHEST: Diminished air entry bilaterally at bases, few coarse breath sounds. CARDIOVASCULAR: S1, S2 normal. Regular rate and rhythm. ABDOMEN: Soft, nondistended. EXTREMITIES: No edema. NEUROLOGIC: The patient is lethargic and no useful communication possible. Medications Medications Current Medications Atenolol (Tenormin) 25 mg BID GTB Last administered on 10/18/18at 18:18; Admin Dose 25 MG; Start 10/18/18 at 18:00 Morphine Sulfate (morphine) 2 mg Q2H PRN IV SEVERE PAIN LEVEL 7-10 Last administered on 10/19/18at 05:35; Admin Dose 2 MG; Start 10/18/18 at 17:00 Acetaminophen (Tylenol Liquid) 650 mg Q4H PRN GTB MILD PAIN(1-3)OR ELEVATED TEMP; Start 10/18/18 at 17:00 Lorazepam (Ativan) 1 mg Q6H PRN IV anxiety/restless Last administered on 10/19/18at 06:32; Admin Dose 1 MG; Start 10/18/18 at 19:00 Morphine Sulfate/ Sodium Chloride 100 ml @ 1 mls/hr TITRATE IV Last administered on 10/21/18at 05:37; Admin Dose 2 MLS/HR; Start 10/19/18 at 10:30 Acetaminophen (Tylenol Tab) 650 mg Q4H PRN PO ELEVATED TEMPERATURE; Start 10/19/18 at 09:00 Lorazepam (Ativan) 1 mg Q4H PRN IV AGITATION/ANXIETY; Start 10/19/18 at 09:00 Ondansetron HCl (Zofran Inj) 4 mg Q6H PRN IV NAUSEA AND/OR VOMITING; Start 10/19/18 at 09:00 Scopolamine (Transderm-Scop) 1 patch Q72H TRANSDERM Last administered on 10/22/18at 09:26; Admin Dose 1 PATCH; Start 10/19/18 at 10:30 Atropine Sulfate (Atropine 1% Oph) 2 drop Q4H PRN SL PRN SECRETIONS; Start 10/19/18 at 10:30 Eye Lubricant (Artificial Tears Oph) 2 drop EACH SHIFT PRN BOTH EYES DRY EYES Last administered on 10/22/18at 21:00; Admin Dose 2 DROP; Start 10/19/18 at 10:30 Dimethicone (Blistex Lip [place]) 1 applic EACH SHIFT PRN TOP dry lips Last administered on 10/22/18at 21:00; Admin Dose 1 APPLIC; Start 10/19/18 at 10:30 Results Result Diagram: 10/18/18 1230 10/18/18 1230 MARCELLO HIGH MD Oct 22, 2018 22:59
[2018-10-23 07:37] VITALS: PULSE 74; RESP 12
[2018-10-23] MEDS: morphine (DRIP) 100 MG/100 ML 100 ML IV SCH (07:40)
[2018-10-23] MEDS: ATENOLOL 25 MG TAB GTB SCH ×2 (08:01→20:09)
--- NOTE | 2018-10-23 11:54 | CONS ---
Date/Time of Note Date/Time of Note DATE: 10/23/18 TIME: 11:53 Assessment/Plan Assessment/Plan Chief Complaint/Hosp Course IMPRESSION: 1. Metastatic esophageal cancer. 2. Acute respiratory failure. 3. Dysphagia status post G-tube placement. 4. History of hypertension. The patient currently is hypotensive. Patient on comfort care cont current care Consultation Date/Type/Reason Admit Date/Time Oct 18, 2018 at 14:54 Initial Consult Date Requesting Provider: MARYCARMEN KO MD 24 HR Interval Summary Free Text/Dictation all noted breathing slow and shallow at 10/min. Exam/Review of Systems Vital Signs Vitals Vital Signs Date Temp Pulse Resp B/P (MAP) Pulse Ox O2 O2 Flow FiO2 Time Delivery Rate 10/23/18 Nasal 5.0 08:51 Cannula 10/23/18 74 12 83 07:37 10/22/18 97.5 56/35 (42) 20:00 10/21/18 60 20:00 Intake and Output 10/22/18 10/22/18 10/23/18 1515:00 23:00 07:00 IntakeIntake Total 456 ml 616 ml 16 ml OutputOutput Total 20 ml BalanceBalance 456 ml 596 ml 16 ml Exam GENERAL: The patient is lethargic and noncommunicative. HEENT: No eye discharge or redness. Nose is normal. NECK: No mass. CHEST: Diminished air entry bilaterally at bases, few coarse breath sounds. CARDIOVASCULAR: S1, S2 normal. Regular rate and rhythm. ABDOMEN: Soft, nondistended. EXTREMITIES: No edema. NEUROLOGIC: The patient is lethargic and no useful communication possible. Medications Medications Current Medications Atenolol (Tenormin) 25 mg BID GTB Last administered on 10/18/18at 18:18; Admin Dose 25 MG; Start 10/18/18 at 18:00 Morphine Sulfate (morphine) 2 mg Q2H PRN IV SEVERE PAIN LEVEL 7-10 Last administered on 10/19/18at 05:35; Admin Dose 2 MG; Start 10/18/18 at 17:00 Acetaminophen (Tylenol Liquid) 650 mg Q4H PRN GTB MILD PAIN(1-3)OR ELEVATED TEMP; Start 10/18/18 at 17:00 Lorazepam (Ativan) 1 mg Q6H PRN IV anxiety/restless Last administered on 10/19/18 06:32; Admin Dose 1 MG; Start 10/18/18 at 19:00 Morphine Sulfate/ Sodium Chloride 100 ml @ 1 mls/hr TITRATE IV Last administered on 10/23/18 07:40; Admin Dose 2 MLS/HR; Start 10/19/18 at 10:30 Acetaminophen (Tylenol Tab) 650 mg Q4H PRN PO ELEVATED TEMPERATURE; Start 10/19/18 at 09:00 Lorazepam (Ativan) 1 mg Q4H PRN IV AGITATION/ANXIETY; Start 10/19/18 at 09:00 Ondansetron HCl (Zofran Inj) 4 mg Q6H PRN IV NAUSEA AND/OR VOMITING; Start 10/19/18 at 09:00 Scopolamine (Transderm-Scop) 1 patch Q72H TRANSDERM Last administered on 10/22/18at 09:26; Admin Dose 1 PATCH; Start 10/19/18 at 10:30 Atropine Sulfate (Atropine 1% Oph) 2 drop Q4H PRN SL PRN SECRETIONS; Start 10/19/18 at 10:30 Eye Lubricant (Artificial Tears Oph) 2 drop EACH SHIFT PRN BOTH EYES DRY EYES Last administered on 10/22/18 21:00; Admin Dose 2 DROP; Start 10/19/18 at 10:30 Dimethicone (Blistex Lip [employer]) 1 applic EACH SHIFT PRN TOP dry lips Last administered on 10/22/18 21:00; Admin Dose 1 APPLIC; Start 10/19/18 at 10:30 MARCELLO HIGH MD Oct 23, 2018 11:54
[2018-10-23] MEDS ORDERED: morphine SULFATE/PF (2 MG/2 ML) SYG IV PRN (17:00)
[2018-10-23 19:26] VITALS: BP 53/21; PULSE 88; RESP 18
--- NOTE | 2018-10-23 23:15 | PN ---
DATE: 10/22/2018 SUBJECTIVE: The patient remains unresponsive. The patient had been declining, looks weaker. Blood pressure has been in the 60s and high 50s. No reported seizure. No reported vomiting. No reported chest congestion. No reported abdominal distention. No reported leg edema. The patient looks weake r. PHYSICAL EXAMINATION: GENERAL: The patient is nonverbal. VITAL SIGNS: Temperature 97.5, pulse 88, respiration 12, blood pressure 69/39, O2 saturation on 84% on 5 liters of nasal cannula. HEENT: No eye discharge or redness. ____is normal. NECK: No mass. CHEST: Diminished air entry at bases. CARDIOVASCULAR: S1 and S2 normal. ABDOMEN: Soft. EXTREMITIES: No significant edema. No clubbing or cyanosis. NEUROLOGIC: The patient is nonverbal. IMPRESSION AND PLAN: 1. Metastatic esophageal cancer. 2. Acute respiratory failure. 3. Dysphagia, status post G-tube placement. The patient remains on IV morphine drip and IV Ativan o n p.r.n. basis as well as scopolamine patch and atropine drops for secretions. The patient is termin ally ill. Continue to optimize comfort care. Dictated By: MARYCARMEN MCCOY/MERNA Conf#: [id number] DID#: [id number]
--- NOTE | 2018-10-24 08:18 | PN ---
DATE: 10/23/2018 SUBJECTIVE: Follow up on metastatic esophageal cancer. The patient is breathing comfortably on supp lemental oxygen. No reported vomiting, no reported chest congestion, no reported seizures. The heather ent remains weak and lethargic. The patient has shallow breathing. Currently on morphine sulfate 2 mg an hour. PHYSICAL EXAMINATION: VITAL SIGNS: Temperature 97.4, pulse 88, respirations 18, blood pressure 53/21 and O2 saturation 82% on supplemental oxygen. HEENT: No eye discharge or redness. Nose and ear is normal. NECK: No mass. CHEST: Diminished air entry at bases. Occasional chest congestion. CARDIOVASCULAR: S1, S2 normal. ABDOMEN: Soft, nondistended. EXTREMITIES: Trace edema. NEUROLOGIC: The patient is lethargic and no useful communication possible. IMPRESSION: 1. Metastatic esophageal cancer. 2. Respiratory failure. 3. Dysphagia. 4. Anemia. PLAN: The patient continued to decline and is terminally ill. I met with some of the patient's fami ly member who presented in the room and updated them regarding plan of care. The patient's family vincent s decided to stop even maintenance IV fluid and they are now requesting only morphine sulfate drip , which can be titrated up for comfort care along with that we will continue IV Ativan on p.r.n. basis for anxiety. Scopolamine patch and atropine drops for secretions. We will continue to optimize comf ort care. Plan of care discussed with the patient's nurse, Glenis. Dictated By: MARYCARMEN KO MD AB/NTS Conf#: [id number] DID#: [id number] CC: MARCELLO HIGH MD; MARYCARMEN KO MD;*EndCC*
[2018-10-24 09:50] VITALS: PULSE 52; RESP 19
[2018-10-24] MEDS: ARTIFICIAL TEARS 15 ML OPH BOTH EYES PRN (12:29)
[2018-10-24] MEDS: ATROPINE 1% 5 ML OPH SL PRN (13:18)
--- NOTE | 2018-10-24 23:52 | CONS ---
Date/Time of Note Date/Time of Note DATE: 10/24/18 TIME: 23:51 Assessment/Plan Assessment/Plan Chief Complaint/Hosp Course IMPRESSION: 1. Metastatic esophageal cancer. 2. Acute respiratory failure. 3. Dysphagia status post G-tube placement. 4. History of hypertension. The patient currently is hypotensive. Patient on comfort care cont current care Consultation Date/Type/Reason Admit Date/Time Oct 18, 2018 at 14:54 Initial Consult Date Requesting Provider: MARYCARMEN KO MD 24 HR Interval Summary Free Text/Dictation ALL NOTED nad Exam/Review of Systems Vital Signs Vitals Vital Signs Date Temp Pulse Resp B/P (MAP) Pulse Ox O2 O2 Flow FiO2 Time Delivery Rate 10/24/18 Nasal 5.0 22:34 Cannula 10/24/18 52 19 84 09:50 10/23/18 97.4 53/21 (32) 19:26 10/21/18 60 20:00 Intake and Output 10/23/18 10/23/18 10/24/18 1515:00 23:00 07:00 IntakeIntake Total 13.3 ml 16 ml 16 ml OutputOutput Total 20 ml BalanceBalance 13.3 ml -4 ml 16 ml Exam GENERAL: The patient is lethargic and noncommunicative. HEENT: No eye discharge or redness. Nose is normal. NECK: No mass. CHEST: Diminished air entry bilaterally at bases, few coarse breath sounds. CARDIOVASCULAR: S1, S2 normal. Regular rate and rhythm. ABDOMEN: Soft, nondistended. EXTREMITIES: No edema. NEUROLOGIC: The patient is lethargic and no useful communication possible. MARCELLO HIGH MD Oct 24, 2018 23:52
[2018-10-25] MEDS: morphine (DRIP) 100 MG/100 ML 100 ML IV SCH (04:44)
[2018-10-25 07:36] VITALS: PULSE 90
[2018-10-25 09:30] VITALS: PULSE 81; RESP 14
--- NOTE | 2018-10-25 10:15 | PN ---
DATE: 10/24/2018 SUBJECTIVE: Follow up on metastatic esophageal cancer and respiratory failure. The patient continue s to decline. The patient is actively dying. Blood pressure is in the 50s, pulse in the 40s, and lo w 50s. The patient is nonverbal. No reported temperature spike. No reported vomiting. PHYSICAL EXAMINATION: GENERAL: Patient is nonverbal. VITAL SIGNS: As above. O2 saturation 84% on 5 liter nasal cannula. NECK: No mass. CHEST: Diminished air entry at bases. Occasional chest congestion. CARDIOVASCULAR: Sinus bradycardia. ABDOMEN: Soft. EXTREMITIES: Trace edema. NEUROLOGIC: The patient is nonverbal. IMPRESSION: 1. Metastatic esophageal cancer. 2. Acute respiratory failure. PLAN: Patient will be continued on morphine sulfate 2 mg an hour. Continue scopolamine patch and at ropine drops for secretions and Ativan for anxiety. Plan of care discussed with the patient's family and nursing staff. Dictated By: MARYCARMEN KO MD AB/MERNA Conf#: [id number] DID#: [id number] CC: MARYCARMEN KO MD;*EndCC*
[2018-10-25] MEDS: ATROPINE 1% 5 ML OPH SL PRN (10:44)
[2018-10-25] MEDS: DIMETHICONE STICK TOP PRN (10:44)
[2018-10-25] MEDS: ARTIFICIAL TEARS 15 ML OPH BOTH EYES PRN (10:44)
[2018-10-25] MEDS: SCOPOLAMINE 1.5 MG PATCH TRANSDERM SCH (12:07)
[2018-10-25 13:17] VITALS: PULSE 59; RESP 12
[2018-10-25 20:25] VITALS: BP 51/29; PULSE 95; RESP 12
--- NOTE | 2018-10-25 23:25 | CONS ---
Date/Time of Note Date/Time of Note DATE: 10/25/18 TIME: 23:25 Assessment/Plan Assessment/Plan Chief Complaint/Hosp Course IMPRESSION: 1. Metastatic esophageal cancer. 2. Acute respiratory failure. 3. Dysphagia status post G-tube placement. 4. History of hypertension. The patient currently is hypotensive. Patient on comfort care cont current care Consultation Date/Type/Reason Admit Date/Time Oct 18, 2018 at 14:54 Initial Consult Date Requesting Provider: MARYCARMEN KO MD 24 HR Interval Summary Free Text/Dictation all noted Exam/Review of Systems Vital Signs Vitals Vital Signs Date Temp Pulse Resp B/P (MAP) Pulse Ox O2 O2 Flow FiO2 Time Delivery Rate 10/25/18 95.8 95 12 51/29 (36) 20:25 10/25/18 91 13:17 10/25/18 3.0 13:02 10/25/18 Nasal 09:30 Cannula 10/21/18 60 20:00 Intake and Output 10/24/18 10/24/18 10/25/18 1515:00 23:00 07:00 IntakeIntake Total 34.90 ml 12.60 ml OutputOutput Total 20 ml BalanceBalance 34.90 ml -7.40 ml Exam GENERAL: The patient is lethargic and noncommunicative. HEENT: No eye discharge or redness. Nose is normal. NECK: No mass. CHEST: Diminished air entry bilaterally at bases, few coarse breath sounds. CARDIOVASCULAR: S1, S2 normal. Regular rate and rhythm. ABDOMEN: Soft, nondistended. EXTREMITIES: No edema. NEUROLOGIC: The patient is lethargic and no useful communication possible. MARCELLO HIGH MD Oct 25, 2018 23:25
--- NOTE | 2018-10-30 12:00 | PQ ---
Date/Time of Note Date/Time of Note DATE: 10/30/18 TIME: 11:[address] Armenta , A review of the medical record found a need for documentation clarification. per wound care nurse documentation, patient has "Sacrococcyx stage IV pressure ulcer, present on admission" please specify if you agree with wound care nurse assessment Please clarify a diagnosis being treated. To facilitate accurate and complete coding, please amirah ( x ) the suspected diagnosis that apply: ( X ) Yes ( ) No ( ) Other Please provide your response by clicking edit document, making your choice (x ), click ok/save and finally click sign. You may also document your response on your progress notes. Thank you for your time. Meenu NICHOLS,CCS,CCDS [employer] Health Information Management, CDI and Coding Services Room # 1525 - [address] [id number] MEENU JJ Oct 30, 2018 11:59 SARAH ARMENTA Oct 31, 2018 10:55
--- NOTE | 2018-11-13 14:26 | DES ---
DATE OF ADMISSION: 10/18/2018 DATE OF : 10/25/2018 CAUSE OF : Metastatic esophageal cancer. CHIEF COMPLAINT AND HISTORY OF PRESENT ILLNESS: The patient was a 63-year-old gentleman with history of metastatic esophageal cancer, was admitted at [facility] due to shortness of br eath, generalized weakness. The patient has extensive metastases to the retroperitoneum and was unde rgoing radiation therapy. The patient also had chronic dysphagia and was being fed through G-tube. The patient had underlying COPD, hypertension. The patient was seen in the ER and was noted to have white count of 28,000; however, the patient was afebrile, tachycardic. The patient looked weak with evidence of malnutrition indicated by temporal muscle wasting and generalized weakness. The patient also had albumin of 2.6. The patient was initially started on broad spectrum IV antibiotic. I spoke with the patient's daughter, , regarding code status and intensity of care. They requested colton t patient be made DNR and be placed on comfort care only. Subsequently, the patient was taken off va ncomycin and cefepime. The family also subsequently requested no G-tube feeding and also on IV fluid . The patient initially was given maintenance dose of IV fluid. The patient continues to decline an d was placed on comfort care including morphine drip. The patient was seen by Dr. Perez from onc ology standpoint, who concurred with the plan of treatment. The patient on 10/25/2018 had developed progressive hypotension. Vital signs reveal temperature of 98.1, pulse 90, respiration 12. Last blo od pressure was 115/29. The patient looked weak and frail and did not respond to verbal or tactile s timuli. The patient did not have any hematemesis or melena. The patient was continued on comfort ca re and was also given a scopolamine patch and atropine drops for secretion and IV Ativan for anxiety. Recent labs had revealed white count of 28,000, hemoglobin 9.3, platelet 190. Chemistry: Sodium 1 43, potassium 3.1, BUN 31, creatinine 0.6. AST 45, ALT 23, alkaline phosphatase 141. Lactic acid 2. 2, which peaked to 2.3. Urine culture and blood cultures were negative. The leukocytosis was due to extensive metastatic disease. I spoke with several family members during hospital stay and subseque ntly, the patient at 22:21 on 10/25/2018. The [facility]. Dictated By: MARYCARMEN MCCOY/NTS Conf#: [id number] DID#: [id number] CC: MARCELLO PEREZ MD;*EndCC*
== END 2018-10-25 23:58 | disposition expired | DRG 374 ==
LOC: E/R 12:07 → 2NE 14:54
PROVIDERS: ADMIT Internal Medicine; ATTEND Internal Medicine
DX: C15.9 Malignant neoplasm of esophagus, unspecified (principal); L89.154 Pressure ulcer of sacral region, stage 4; J96.00 Acute respiratory failure, unspecified whether with hypoxia or hypercapnia; E43 Unspecified severe protein-calorie malnutrition; N12 Tubulo-interstitial nephritis, not specified as acute or chronic; C78.6 Secondary malignant neoplasm of retroperitoneum and peritoneum; Z68.1 Body mass index [BMI] 19.9 or less, adult; E87.0 Hyperosmolality and hypernatremia; I95.9 Hypotension, unspecified; Z66 Do not resuscitate; K74.60 Unspecified cirrhosis of liver; I10 Essential (primary) hypertension; D64.9 Anemia, unspecified; Z87.891 Personal history of nicotine dependence; Z51.5 Encounter for palliative care
CPT/HCPCS: 71045; 80053; 81001; 82150; 83605; 83690; 84484; 85025; 85610; 85730; 87040; 87086; 93005; 94644; 96365; 96375; J0692; J2060; J2270; J2405; J3370; J7030; J7042